=== PATIENT | female | born 1960 | race Caucasian/White ===

== ENCOUNTER → 2016-10-24 | Outpatient (CLI) | payer BC ==
--- NOTE | 2016-10-24 12:33 | REP ---
Chest two views HISTORY: Cough Comparison: 09/11/2013 An increase in interstitial markings is present in the lower lobes consistent with chronic interstitial fibrosis. The cardiac silhouette is enlarged. The pulmonary vasculature is normal in appearance. The bony structure is intact. IMPRESSION: 1. Chronic bibasilar interstitial fibrosis. 2. Cardiomegaly. Signed by Xander Cintron MD 10/24/2016 12:25 P
== END ==
LOC: M LRY 11:48
PROVIDERS: ATTEND Nurse Practitioner Family
DX: J84.10 Pulmonary fibrosis, unspecified (principal); I51.7 Cardiomegaly; R06.02 Shortness of breath; R05 Cough

== ENCOUNTER → 2016-10-27 | Outpatient (CLI) | payer BC ==
[2016-10-27 18:41] LABS: MEAN CORPUSCULAR HEMOGLOBIN 30.1 pg (27.0-33.0); MEAN CORPUSCULAR HGB CONC 35.1 g/dl (32.0-36.5); MEAN CORPUSCULAR VOLUME 85.9 fl (80.0-96.0); RED CELL DISTRIBUTION WIDTH 14.2 % (11.5-14.5); WHITE BLOOD COUNT 7.1 K/mm3 (4.0-10.0)
[2016-10-27 18:56] LABS: ALBUMIN 4.2 GM/DL (3.2-5.2); ALBUMIN/GLOBULIN RATIO 1.17 (1.00-1.93); ALKALINE PHOSPHATASE 129 U/L (45-117); ALT/SGPT 49 U/L (12-78); ANION GAP 6 MEQ/L (8-16); AST/SGOT 34 U/L (15-37); BILIRUBIN,TOTAL 0.4 MG/DL (0.2-1.0); BLOOD UREA NITROGEN 12 MG/DL (7-18); CALCIUM LEVEL 9.3 MG/DL (8.5-10.1); CARBON DIOXIDE LEVEL 32 MEQ/L (21-32); CHLORIDE LEVEL 100 MEQ/L (98-107); CHOLESTEROL LEVEL 128 MG/DL (<200); CREATININE FOR GFR 0.78 MG/DL (0.55-1.02); GLOMERULAR FILTRATION RATE > 60.0 (>51); GLUCOSE, FASTING 214 MG/DL (70-105); POTASSIUM SERUM 4.9 MEQ/L (3.5-5.1); SODIUM LEVEL 138 MEQ/L (136-145); TOTAL PROTEIN 7.8 GM/DL (6.4-8.2); TRIGLYCERIDES LEVEL 268 MG/DL (<150)
== END ==
LOC: M LRY 11:23
PROVIDERS: ATTEND Nurse Practitioner Family
DX: E78.00 Pure hypercholesterolemia, unspecified (principal); I10 Essential (primary) hypertension; E55.9 Vitamin D deficiency, unspecified

== ENCOUNTER → 2016-12-10 | Outpatient (CLI) | payer BC ==
[2016-12-10 12:15] LABS: FREE T4 1.02 NG/DL (0.76-1.46); THYROXINE (T4) 10.1 UG/DL (4.5-12.0)
== END ==
LOC: M LRY 08:24
PROVIDERS: ATTEND Nurse Practitioner Family
DX: R53.83 Other fatigue (principal); E53.8 Deficiency of other specified B group vitamins; R73.9 Hyperglycemia, unspecified

== ENCOUNTER → 2016-12-25 | Outpatient (CLI) | payer BC ==
[2016-12-25 11:29] LABS: MEAN CORPUSCULAR HEMOGLOBIN 29.7 pg (27.0-33.0); MEAN CORPUSCULAR HGB CONC 33.8 g/dl (32.0-36.5); MEAN CORPUSCULAR VOLUME 87.8 fl (80.0-96.0); RED CELL DISTRIBUTION WIDTH 14.3 % (11.5-14.5); WHITE BLOOD COUNT 7.1 K/mm3 (4.0-10.0)
[2016-12-25 12:27] LABS: ALBUMIN 3.9 GM/DL (3.2-5.2); ALKALINE PHOSPHATASE 126 U/L (45-117); ALT/SGPT 35 U/L (12-78); ANION GAP 6 MEQ/L (8-16); AST/SGOT 25 U/L (15-37); BILIRUBIN,TOTAL 0.5 MG/DL (0.2-1.0); BLOOD UREA NITROGEN 10 MG/DL (7-18); CALCIUM LEVEL 9.1 MG/DL (8.5-10.1); CARBON DIOXIDE LEVEL 28 MEQ/L (21-32); CHLORIDE LEVEL 104 MEQ/L (98-107); CHOLESTEROL LEVEL 109 MG/DL (<200); CREATININE FOR GFR 0.62 MG/DL (0.55-1.02); GLOMERULAR FILTRATION RATE > 60.0 (>51); GLUCOSE, FASTING 162 MG/DL (70-105); MAGNESIUM LEVEL 2.2 MG/DL (1.8-2.4); POTASSIUM SERUM 5.1 MEQ/L (3.5-5.1); SODIUM LEVEL 138 MEQ/L (136-145); TOTAL PROTEIN 6.9 GM/DL (6.4-8.2); TRIGLYCERIDES LEVEL 195 MG/DL (<150)
== END ==
LOC: M LRY 08:20
PROVIDERS: ATTEND Nurse Practitioner Family
DX: E16.2 Hypoglycemia, unspecified (principal)

== ENCOUNTER → 2017-01-14 | Outpatient (CLI) | payer BC ==
--- NOTE | 2017-01-14 16:34 | REP ---
LEFT WRIST, FOUR VIEWS: HISTORY: Pain. There is no acute fracture or dislocation. There is minimal narrowing of the radiocarpal and 1st carpal metacarpal joint space. IMPRESSION: Degenerative change as described above. Signed by Xander Cintron MD 01/14/2017 04:42 P
== END ==
LOC: M LRY 15:37
PROVIDERS: ATTEND Nurse Practitioner Family
DX: M25.832 Other specified joint disorders, left wrist (principal)

== ENCOUNTER → 2017-03-15 | Outpatient (CLI) | payer BC ==
--- NOTE | 2017-03-15 10:58 | REP ---
MAXILLOFACIAL CT WITHOUT CONTRAST: HISTORY: Chronic sinusitis. COMPARISON: 08/09/2011. The uncinate processes are not seen. A defect is present in the mid inferior nasal septum. This may be due to surgery or secondary to chronic inflammatory disease. Minimal mucosal thickening is present in the maxillary sinuses. The remaining sinuses are clear. The middle and inferior nasal turbinates are partially paradoxical. The nasal septum is midline. The cribriform plate, medial borrego of the orbits, and optic canals are intact. There is aeration of the anterior clinoid processes. The carotid canals form a segment of the posterolateral borrego of the sphenoid sinus. The right sphenoid sinus septum inserts into the right internal carotid canal wall. IMPRESSION: Sinus mucosal thickening as described above. Signed by Xander Cintron MD 03/15/2017 11:08 A
== END ==
LOC: M RAD 10:25
PROVIDERS: ATTEND Specialist
DX: J32.4 Chronic pansinusitis (principal)

== ENCOUNTER → 2017-05-10 | Outpatient (CLI) | payer BC ==
--- NOTE | 2017-05-13 07:15 | REP ---
Clinical: Evaluate patency for line placement. Technique: Real time miller scale and color Doppler evaluation using linear high frequency transducer. Findings: Directed ultrasound examination at the level of the thoracic inlet demonstrates normal, patent bilateral internal jugular veins with normal diameter, flow and wave patterns. Subclavian veins are patent and demonstrate normal venous wave patterns, but appears somewhat diminutive in caliber. Impression: Patent bilateral internal jugular veins and subclavian veins. Subclavian veins appear somewhat diminutive but symmetric. Signed by Ishaan Martines MD 05/10/2017 03:18 P
== END ==
LOC: M RAD 14:38
PROVIDERS: ATTEND Nurse Practitioner Family
DX: M79.89 Other specified soft tissue disorders (principal)

== ENCOUNTER → 2017-05-15 | Outpatient (CLI) | payer BC | LOC: M LRY 07:32 | PROVIDERS: ATTEND Physician Assistant Medical | DX: E55.9 Vitamin D deficiency, unspecified (principal) ==

== ENCOUNTER → 2017-05-15 | Outpatient (REF) | payer BC ==
[2017-05-15 13:26] LABS: MEAN CORPUSCULAR HEMOGLOBIN 28.8 pg (27.0-33.0); MEAN CORPUSCULAR VOLUME 84.8 fl (80.0-96.0); RED CELL DISTRIBUTION WIDTH 14.8 % (11.5-14.5)
[2017-05-15 13:57] LABS: ALBUMIN/GLOBULIN RATIO 1.21 (1.00-1.93); ALKALINE PHOSPHATASE 84 U/L (45-117); ALT/SGPT 40 U/L (12-78); ANION GAP 7 MEQ/L (8-16); AST/SGOT 16 U/L (15-37); BILIRUBIN,TOTAL 0.3 MG/DL (0.2-1.0); BLOOD UREA NITROGEN 13 MG/DL (7-18); CALCIUM LEVEL 9.5 MG/DL (8.5-10.1); CARBON DIOXIDE LEVEL 30 MEQ/L (21-32); CHLORIDE LEVEL 106 MEQ/L (98-107); CHOLESTEROL LEVEL 219 MG/DL (<200); CREATININE FOR GFR 0.66 MG/DL (0.55-1.02); GLOMERULAR FILTRATION RATE > 60.0 (>51); GLUCOSE, FASTING 83 MG/DL (70-105); POTASSIUM SERUM 4.3 MEQ/L (3.5-5.1); SODIUM LEVEL 143 MEQ/L (136-145); TOTAL PROTEIN 7.3 GM/DL (6.4-8.2); TRIGLYCERIDES LEVEL 296 MG/DL (<150)
== END ==
LOC: M LRY 12:15
PROVIDERS: ATTEND Nurse Practitioner Family
DX: E78.00 Pure hypercholesterolemia, unspecified (principal); I10 Essential (primary) hypertension; E11.9 Type 2 diabetes mellitus without complications; R73.9 Hyperglycemia, unspecified

== ENCOUNTER → 2017-07-24 | Outpatient (CLI) | payer BC ==
--- NOTE | 2017-07-24 14:29 | REP ---
Clinical: Lump. Comparison: 10/24/2016. Technique: PA and lateral. Findings: The mediastinum and cardiac silhouette are normal. The lung rubio are clear and without acute consolidation, effusion, or pneumothorax. The skeletal structures are intact and normal. Impression: 1. No acute cardiopulmonary process. Signed by Ishaan Martines MD 07/24/2017 02:20 P
--- NOTE | 2017-07-24 14:51 | REP ---
Clinical: Left neck palpable mass. Technique: Real time miller scale ultrasound examination using linear high frequency transducer. Findings: Directed ultrasound examination in the left supraclavicular region at the point of palpable mass demonstrates normal subcutaneous tissues and associated soft tissues. No fluid collection, adenopathy or mass appreciated. Impression: No abnormality in the left supraclavicular region. Signed by Ishaan Martines MD 07/24/2017 02:42 P
--- NOTE | 2017-07-25 07:39 | REPMRS ---
Patient History The patient states she has not had a clinical breast exam in over a year. Patient is postmenopausal, has history of cancer in the left breast at age 49, and has history of colorectal cancer at age 41. Family history of colorectal cancer in father at age 50 and breast cancer in maternal grandmother. Malignant excisional biopsy of the left breast, 2010. Radiation therapy of the left breast. Took hormonal contraceptives for 10 years. Took unspecified hormones for 2 years. Digital Mammo Screening Bilat: July 24, 2017 - Exam #: [id number] Bilateral CC and MLO view(s) were taken. Technologist: Leesa Herr, Technologist Prior study comparison: June 28, 2016, bilateral digital mammo screening bilat performed at [facility]. May 20, 2015, digital bilateral screening mammo, performed at [facility]. May 14, 2014, bilateral digital mammo screening bilat performed at [facility]. FINDINGS: There are scattered fibroglandular densities. There has been no change in the appearance of the mammogram from the prior studies. There is a mild amount of scattered fibroglandular density which is fairly symmetric. There is no interval development of dominant mass, architectural distortion, or clustered microcalcification suggestive of malignancy. ASSESSMENT: BI-RADS/ACR category 1 mammogram. Negative. Recommendation Routine screening mammogram in 1 year (for women over age 40). This mammogram was interpreted with the aid of an FDA-approved computer-aided dectection system. Electronically Signed By: Brandt Hui MD 07/25/17 0739
== END ==
LOC: M RAD 13:38
PROVIDERS: ATTEND Nurse Practitioner Adult Health
DX: R22.1 Localized swelling, mass and lump, neck (principal)

== ENCOUNTER → 2017-08-13 | Outpatient (CLI) | payer BC ==
[2017-08-13 11:57] LABS: BASO % 0.7 % (0.0-1.0); EOS # 0.2 10^3/uL (0.0-0.50); IMMATURE GRANULOCYTE % 0.2 % (0-0); MEAN CORPUSCULAR HEMOGLOBIN 28.5 pg (27.0-33.0); MEAN CORPUSCULAR HGB CONC 33.1 g/dl (32.0-36.5); MEAN CORPUSCULAR VOLUME 86.3 fl (80.0-96.0); MONO # 0.4 10^3/uL (0.0-0.8); MONO % 7.6 % (0.0-5.0); NEUTROPHILS # 2.8 10^3/uL (1.8-7.7); NEUTROPHILS % 52.5 % (36.0-66.0); PLATELET COUNT, AUTOMATED 192 10^3/uL (150-450); RED CELL DISTRIBUTION WIDTH 14.1 % (11.5-14.5); WHITE BLOOD COUNT 5.4 10^3/uL (4.0-10.0)
[2017-08-13 12:34] LABS: ALBUMIN 3.9 GM/DL (3.2-5.2); ALBUMIN/GLOBULIN RATIO 1.18 (1.00-1.93); ALKALINE PHOSPHATASE 77 U/L (45-117); ALT/SGPT 42 U/L (12-78); ANION GAP 8 MEQ/L (8-16); AST/SGOT 23 U/L (7-37); BILIRUBIN,TOTAL 0.5 MG/DL (0.2-1.0); BLOOD UREA NITROGEN 11 MG/DL (7-18); CALCIUM LEVEL 8.7 MG/DL (8.5-10.1); CARBON DIOXIDE LEVEL 27 MEQ/L (21-32); CHLORIDE LEVEL 109 MEQ/L (98-107); CHOLESTEROL LEVEL 160 MG/DL (<200); CREATININE FOR GFR 0.53 MG/DL (0.55-1.02); FREE T4 0.95 NG/DL (0.76-1.46); GLOMERULAR FILTRATION RATE > 60.0 (>51); GLUCOSE, FASTING 101 MG/DL (70-105); POTASSIUM SERUM 4.4 MEQ/L (3.5-5.1); SODIUM LEVEL 144 MEQ/L (136-145); TOTAL PROTEIN 7.2 GM/DL (6.4-8.2); TRIGLYCERIDES LEVEL 174 MG/DL (<150)
== END ==
LOC: M LRY 09:45
PROVIDERS: ATTEND Internal Medicine Cardiovascular Disease
DX: E11.9 Type 2 diabetes mellitus without complications (principal); G47.33 Obstructive sleep apnea (adult) (pediatric); M32.9 Systemic lupus erythematosus, unspecified

== ENCOUNTER → 2017-08-13 | Outpatient (REF) | payer BC | LOC: M LRY 09:48 | PROVIDERS: ATTEND Physician Assistant Medical | DX: E55.9 Vitamin D deficiency, unspecified (principal) ==

== ENCOUNTER → 2017-08-14 | Outpatient (REF) | payer BC | LOC: M SMT 17:46 | PROVIDERS: ATTEND Nurse Practitioner Women's Health | DX: R32 Unspecified urinary incontinence (principal) ==

== ENCOUNTER → 2017-09-19 | Outpatient (REF) | payer BC ==
[2017-09-19 20:32] LABS: APPEARANCE, URINE CLEAR (CLEAR); BACTERIA, URINE AUTO 1+ (NEGATIVE); BILIRUBIN, URINE AUTO NEGATIVE (NEGATIVE); BLOOD, URINE BLOOD NEGATIVE (NEGATIVE); COLOR, URINE YELLOW (YELLOW); GLUCOSE, URINE (UA) AUTO NEGATIVE (NEGATIVE); KETONE, URINE AUTO NEGATIVE (NEGATIVE); LEUKOCYTE ESTERASE, URINE AUTO 2+ (NEGATIVE); MUCUS, URINE SMALL (NEGATIVE); NITRITE, URINE AUTO NEGATIVE (NEGATIVE); PROTEIN, URINE AUTO NEGATIVE (NEGATIVE); RBC, URINE AUTO 2 /HPF (0-3); SPECIFIC GRAVITY URINE AUTO 1.014 (1.002-1.035); SQUAMOUS EPITHELIAL CELL UR AU 2 /HPF (0-6); UROBILINOGEN, URINE AUTO 0.2 mg/dL (0.0-2.0); WBC, URINE AUTO 12 /HPF (0-3)
== END ==
LOC: M SMT 17:30
DX: N39.0 Urinary tract infection, site not specified (principal)
CPT/HCPCS: 81001

== ENCOUNTER → 2017-10-06 | Outpatient (CLI) | payer BC | LOC: M LRY 13:38 | DX: R53.81 Other malaise (principal); R91.8 Other nonspecific abnormal finding of lung field ==

== ENCOUNTER → 2017-10-06 | Outpatient (REF) | payer BC ==
[2017-10-06 20:43] LABS: INFLUENZA A AMPLIFICATION POSITIVE (NEGATIVE); INFLUENZA B AMPLIFICATION NEGATIVE (NEGATIVE)
== END ==
LOC: M SFHCLERA 14:30
DX: R53.81 Other malaise (principal)
CPT/HCPCS: 87502

== ENCOUNTER → 2017-11-12 | Outpatient (CLI) | payer BC ==
[2017-11-12 11:32] LABS: BASO % 0.9 % (0.0-1.0); EOS # 0.1 10^3/uL (0.0-0.50); EOS % 2.8 % (0.0-3.0); HEMATOCRIT 41.3 % (36.0-47.0); HEMOGLOBIN 13.4 g/dl (12.0-16.0); IMMATURE GRANULOCYTE % 0.4 % (0-3.0); LYMPH # 0.6 10^3/uL (1.5-4.5); LYMPH % 13.9 % (24.0-44.0); MEAN CORPUSCULAR HEMOGLOBIN 28.2 pg (27.0-33.0); MEAN CORPUSCULAR HGB CONC 32.4 g/dl (32.0-36.5); MEAN CORPUSCULAR VOLUME 86.9 fl (80.0-96.0); MONO # 0.3 10^3/uL (0.0-0.8); MONO % 6.3 % (0.0-5.0); NEUTROPHILS # 3.5 10^3/uL (1.8-7.7); NEUTROPHILS % 75.7 % (36.0-66.0); PLATELET COUNT, AUTOMATED 164 10^3/uL (150-450); RED BLOOD COUNT 4.75 10^6/uL (4.00-5.40); RED CELL DISTRIBUTION WIDTH 14.4 % (11.5-14.5); WHITE BLOOD COUNT 4.6 10^3/uL (4.0-10.0)
[2017-11-12 11:50] LABS: ALBUMIN 3.6 GM/DL (3.2-5.2); ALBUMIN/GLOBULIN RATIO 1.09 (1.00-1.93); ALKALINE PHOSPHATASE 85 U/L (45-117); ALT/SGPT 31 U/L (12-78); ANION GAP 5 MEQ/L (8-16); AST/SGOT 21 U/L (7-37); BILIRUBIN,TOTAL 0.4 MG/DL (0.2-1.0); BLOOD UREA NITROGEN 9 MG/DL (7-18); CALCIUM LEVEL 8.6 MG/DL (8.5-10.1); CARBON DIOXIDE LEVEL 28 MEQ/L (21-32); CHLORIDE LEVEL 109 MEQ/L (98-107); CHOLESTEROL LEVEL 215 MG/DL (<200); CHOLESTEROL RISK RATIO 6.515 (<5); CREATININE FOR GFR 0.54 MG/DL (0.55-1.30); FREE T4 0.84 NG/DL (0.76-1.46); GLOMERULAR FILTRATION RATE > 60.0 (>51); GLUCOSE, FASTING 109 MG/DL (70-100); HDL CHOLESTEROL 33 MG/DL (>40); LDL CHOLESTEROL 141.2 MG/DL (<100); NON-HDL-C 182 MG/DL; SODIUM LEVEL 142 MEQ/L (136-145); THYROID STIMULATING HORMONE 0.848 uIU/ML (0.358-3.740); TOTAL PROTEIN 6.9 GM/DL (6.4-8.2); TRIGLYCERIDES LEVEL 204 MG/DL (<150)
[2017-11-12 12:01] LABS: TOTAL 25(OH) VITAMIN D 15.7 NG/ML (30.0-100.0)
[2017-11-12 12:43] LABS: ESTIMATED AVERAGE GLUCOSE 120 MG/DL (60-110); HEMOGLOBIN A1c 5.8 %
== END ==
LOC: M LRY 08:35
DX: Z51.81 Encounter for therapeutic drug level monitoring (principal); Z79.899 Other long term (current) drug therapy; E83.32 Hereditary vitamin D-dependent rickets (type 1) (type 2); R73.9 Hyperglycemia, unspecified; E78.00 Pure hypercholesterolemia, unspecified; E78.1 Pure hyperglyceridemia
CPT/HCPCS: 84443

== ENCOUNTER → 2018-03-13 | Outpatient (REF) | payer BC ==
[2018-03-13 13:01] LABS: BASO # 0.1 10^3/uL (0.0-0.2); BASO % 0.9 % (0.0-1.0); EOS # 0.2 10^3/uL (0.0-0.50); EOS % 3.4 % (0.0-3.0); HEMATOCRIT 43.8 % (36.0-47.0); HEMOGLOBIN 14.3 g/dl (12.0-15.5); IMMATURE GRANULOCYTE % 0.3 % (0-3.0); LYMPH # 2.2 10^3/uL (1.5-4.5); LYMPH % 33.7 % (24.0-44.0); MEAN CORPUSCULAR HEMOGLOBIN 28.8 pg (27.0-33.0); MEAN CORPUSCULAR HGB CONC 32.6 g/dl (32.0-36.5); MEAN CORPUSCULAR VOLUME 88.3 fl (80.0-96.0); MONO # 0.4 10^3/uL (0.0-0.8); MONO % 6.4 % (0.0-5.0); NEUTROPHILS # 3.6 10^3/uL (1.8-7.7); NEUTROPHILS % 55.3 % (36.0-66.0); PLATELET COUNT, AUTOMATED 191 10^3/uL (150-450); RED BLOOD COUNT 4.96 10^6/uL (4.00-5.40); RED CELL DISTRIBUTION WIDTH 14.5 % (11.5-14.5); WHITE BLOOD COUNT 6.5 10^3/uL (4.0-10.0)
[2018-03-13 13:36] LABS: CREATININE, URINE 34.1 MG/DL; MALB URINE SIEMENS < 5.0 MG/L; MAU/CREAT RATIO 14.6 MCG/MG (0.0-30.0)
[2018-03-13 13:39] LABS: TOTAL 25(OH) VITAMIN D 42.4 NG/ML (30.0-100.0)
[2018-03-13 13:59] LABS: ALBUMIN 3.9 GM/DL (3.2-5.2); ALBUMIN/GLOBULIN RATIO 1.18 (1.00-1.93); ALKALINE PHOSPHATASE 97 U/L (45-117); ALT/SGPT 33 U/L (12-78); ANION GAP 6 MEQ/L (8-16); AST/SGOT 17 U/L (7-37); BILIRUBIN,TOTAL 0.4 MG/DL (0.2-1.0); BLOOD UREA NITROGEN 10 MG/DL (7-18); CALCIUM LEVEL 9.2 MG/DL (8.5-10.1); CARBON DIOXIDE LEVEL 29 MEQ/L (21-32); CHLORIDE LEVEL 106 MEQ/L (98-107); CHOLESTEROL LEVEL 171 MG/DL (<200); CHOLESTEROL RISK RATIO 4.885 (<5); CREATININE FOR GFR 0.58 MG/DL (0.55-1.30); FREE T4 0.81 NG/DL (0.76-1.46); GLOMERULAR FILTRATION RATE > 60.0 (>51); GLUCOSE, FASTING 97 MG/DL (70-100); HDL CHOLESTEROL 35 MG/DL (>40); LDL CHOLESTEROL 91.6 MG/DL (<100); NON-HDL-C 136 MG/DL; POTASSIUM SERUM 4.7 MEQ/L (3.5-5.1); SODIUM LEVEL 141 MEQ/L (136-145); TOTAL PROTEIN 7.2 GM/DL (6.4-8.2); TRIGLYCERIDES LEVEL 222 MG/DL (<150)
[2018-03-13 14:17] LABS: ESTIMATED AVERAGE GLUCOSE 134 MG/DL (60-110); HEMOGLOBIN A1c 6.3 %
== END ==
LOC: M LABDRWAD 12:35
DX: E78.00 Pure hypercholesterolemia, unspecified (principal); E83.32 Hereditary vitamin D-dependent rickets (type 1) (type 2)

== ENCOUNTER → 2018-07-04 | Outpatient (CLI) | payer BC | LOC: M RAD 13:02 | DX: R92.2 Inconclusive mammogram (principal) | CPT/HCPCS: 76642 ==

== ENCOUNTER → 2018-07-09 | Outpatient (CLI) | payer BC | LOC: M RAD 12:22 | DX: N60.11 Diffuse cystic mastopathy of right breast (principal) | CPT/HCPCS: 77065 ==

== ENCOUNTER 2018-08-12 09:26 | Day surgery (SDC) | payer BC ==
[~2018-08-12] VITALS: Ht 162.6 cm; Wt 79.4 kg
[~2018-08-12 09:26] MED LIST: ASPI81TA85 PO; CALC600T68 PO; CLAR10CA3 PO; CRES10TA32 PO; DEXI60CA2 PO; FLON1SPR NARES; JANU100T PO; LEXA1TAB2 PO; METH1TAB40 PO; METO1TAB32 PO; ROPI1TAB PO; ROPI2TAB PO; VENTAER INH
[2018-08-12] MEDS ORDERED: NS 1,000 ML IV ONE (09:45)
[2018-08-12] MEDS ORDERED: LIDOCAINE 2% INJ 100 MG/5 ML SDV (FOR ANES.) As Ordered ONE (10:54)
[2018-08-12] MEDS ORDERED: PROPOFOL 500 MG/50 ML VIAL As Ordered ONE (10:54)
[2018-08-12] MEDS ORDERED: fentaNYL 100 MCG/2 ML INJECTION (J3010) As Ordered ONE (10:54)
[2018-08-12] MEDS ORDERED: ePHEDrine SULFATE 25 MG/5 ML(5MG/ML) SYRINGE As Ordered ONE (11:06)
[2018-08-12 11:45] VITALS: BP 142/76
--- NOTE | 2018-08-12 12:17 | ROOR ---
Patient Name: Caron Franco Procedure Date: 08/12/2018 10:42 AM Date of : 1960 Age: 57 Room: [facility] Gender: Female Note Status: Finalized Procedure: Upper GI endoscopy Indications: Dyspepsia, Dysphagia Providers: Kilo Reyes MD Referring MD: LINDEN MORTON NP Requesting Provider: Medicines: Monitored Anesthesia Care Complications: No immediate complications. Procedure: Pre-Anesthesia Assessment: - Prior to the procedure, a History and Physical was performed, and patient medications and allergies were reviewed. The patient is competent. The risks and benefits of the procedure and the sedation options and risks were discussed with the patient. All questions were answered and informed consent was obtained. Patient identification and proposed procedure were verified by the physician, the nurse and the anesthesiologist in the procedure room. Mental Status Examination: alert and oriented. Airway Examination: normal oropharyngeal airway and neck mobility. Respiratory Examination: clear to auscultation. CV Examination: normal. Prophylactic Antibiotics: The patient does not require prophylactic antibiotics. Prior Anticoagulants: The patient has taken no previous anticoagulant or antiplatelet agents. ASA Grade Assessment: II - A patient with mild systemic disease. After reviewing the risks and benefits, the patient was deemed in satisfactory condition to undergo the procedure. The anesthesia plan was to use monitored anesthesia care (MAC). Immediately prior to administration of medications, the patient was re-assessed for adequacy to receive sedatives. The heart rate, respiratory rate, oxygen saturations, blood pressure, adequacy of pulmonary ventilation, and response to care were monitored throughout the procedure. The physical status of the patient was re-assessed after the procedure. The Endoscope was introduced through the mouth, and advanced to the second part of duodenum. The upper GI endoscopy was accomplished without difficulty. The patient tolerated the procedure well. Findings: The Z-line was regular and was found 39 cm from the incisors. No endoscopic abnormality was evident in the esophagus to explain the patient's complaint of dysphagia. Biopsies were obtained from the proximal and distal esophagus with cold forceps for histology of suspected eosinophilic esophagitis. Verification of patient identification for the specimen was done by the physician and nurse using the patient's name, date and medical record number. Estimated blood loss was minimal. Diffuse severe inflammation characterized by erythema, friability, granularity and linear erosions was found in the gastric body and in the gastric antrum. Biopsies were taken with a cold forceps for histology. Biopsies were taken with a cold forceps for Helicobacter pylori testing. Verification of patient identification for the specimen was done by the physician and nurse using the patient's name, date and medical record number. Estimated blood loss was minimal. The duodenal bulb and second portion of the duodenum were normal. Biopsies for histology were taken with a cold forceps for evaluation of celiac disease. Impression: - Z-line regular, 39 cm from the incisors. - No endoscopic esophageal abnormality to explain patient's dysphagia. Biopsied. - Gastritis. Biopsied. - Normal duodenal bulb and second portion of the duodenum. Biopsied. Recommendation: - Patient has a contact number available for emergencies. The signs and symptoms of potential delayed complications were discussed with the patient. Return to normal activities tomorrow. Written discharge instructions were provided to the patient. - Resume previous diet. - Continue present medications. 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 - Follow an antireflux regimen. - Await pathology results. - Based on the biopsy results you will receive a phone call from GI clinic in 2-3 weeks to review the pathology results AND/OR your results will be faxed to your Primary care physician. - Return to primary care physician. Kilo Reyes MD Kilo Reyes MD 08/12/2018 12:17:28 PM This report has been signed electronically. Number of Addenda: 0 Note Initiated On: 08/12/2018 10:42 AM Estimated Blood Loss: Estimated blood loss was minimal.
--- NOTE | 2018-08-12 12:20 | ROOR ---
Patient Name: Caron Franco Procedure Date: 08/12/2018 10:43 AM Date of : 1960 Age: 57 Room: [facility] Gender: Female Note Status: Finalized Procedure: Colonoscopy Indications: Screening for colorectal malignant neoplasm Providers: Kilo Reyes MD Referring MD: LINDEN MORTON NP Requesting Provider: Medicines: Monitored Anesthesia Care Complications: No immediate complications. Procedure: Pre-Anesthesia Assessment: - Prior to the procedure, a History and Physical was performed, and patient medications and allergies were reviewed. The patient is competent. The risks and benefits of the procedure and the sedation options and risks were discussed with the patient. All questions were answered and informed consent was obtained. Patient identification and proposed procedure were verified by the physician, the nurse and the anesthesiologist in the procedure room. Mental Status Examination: alert and oriented. Airway Examination: normal oropharyngeal airway and neck mobility. Respiratory Examination: clear to auscultation. CV Examination: normal. Prophylactic Antibiotics: The patient does not require prophylactic antibiotics. Prior Anticoagulants: The patient has taken no previous anticoagulant or antiplatelet agents. ASA Grade Assessment: II - A patient with mild systemic disease. After reviewing the risks and benefits, the patient was deemed in satisfactory condition to undergo the procedure. The anesthesia plan was to use monitored anesthesia care (MAC). Immediately prior to administration of medications, the patient was re-assessed for adequacy to receive sedatives. The heart rate, respiratory rate, oxygen saturations, blood pressure, adequacy of pulmonary ventilation, and response to care were monitored throughout the procedure. The physical status of the patient was re-assessed after the procedure. The Colonoscope was introduced through the anus and advanced to the terminal ileum, with identification of the appendiceal orifice and IC valve. The colonoscopy was performed without difficulty. The patient tolerated the procedure well. The quality of the bowel preparation was good. The terminal ileum, ileocecal valve, appendiceal orifice, and rectum were photographed. Scope insertion time was 4 minutes. Scope withdrawal time was 10 minutes. The total duration of the procedure was 14 minutes. Findings: The perianal and digital rectal examinations were normal. The terminal ileum appeared normal. A 12 mm polyp was found in the ascending colon. The polyp was sessile. The polyp was removed with a cold biopsy forceps. Resection and retrieval were complete. Verification of patient identification for the specimen was done by the physician and nurse using the patient's name, date and medical record number. Estimated blood loss was minimal. A 10 mm polyp was found in the transverse colon. The polyp was sessile. The polyp was removed with a cold snare. Resection and retrieval were complete. Non-bleeding external and internal hemorrhoids were found during retroflexion. The hemorrhoids were medium-sized. Impression: - The examined portion of the ileum was normal. - One 12 mm polyp in the ascending colon, removed with a cold biopsy forceps. Resected and retrieved. - One 10 mm polyp in the transverse colon, removed with a cold snare. Resected and retrieved. - Non-bleeding external and internal hemorrhoids. Recommendation: - Patient has a contact number available for emergencies. The signs and symptoms of potential delayed complications were discussed with the patient. Return to normal activities tomorrow. Written discharge instructions were provided to the patient. - Resume previous diet. - Continue present medications. - Await pathology results. - Repeat colonoscopy in 3 - 5 years for surveillance based on pathology results. - Based on the biopsy results you will receive a phone call from GI clinic in 2-3 weeks to review the pathology results AND/OR your results will be faxed to your Primary care physician. - Return to primary care physician. Kilo Reyes MD Kilo Reyes MD 08/12/2018 12:20:38 PM This report has been signed electronically. Number of Addenda: 0 Note Initiated On: 08/12/2018 10:43 AM Estimated Blood Loss: Estimated blood loss was minimal.
== END 2018-08-12 12:23 | disposition home or self-care (01) ==
LOC: M OPP 09:26
PROVIDERS: ATTEND Internal Medicine Gastroenterology
DX: Z12.11 Encounter for screening for malignant neoplasm of colon (principal); K64.8 Other hemorrhoids; D12.2 Benign neoplasm of ascending colon; D12.3 Benign neoplasm of transverse colon; Z80.0 Family history of malignant neoplasm of digestive organs; R13.10 Dysphagia, unspecified; K29.70 Gastritis, unspecified, without bleeding; R10.13 Epigastric pain; I10 Essential (primary) hypertension; E11.9 Type 2 diabetes mellitus without complications; J45.909 Unspecified asthma, uncomplicated; G47.30 Sleep apnea, unspecified; Z79.82 Long term (current) use of aspirin; Z79.899 Other long term (current) drug therapy; Z85.3 Personal history of malignant neoplasm of breast; Z90.710 Acquired absence of both cervix and uterus
CPT/HCPCS: 43239; 45380; 45385; 88305; J3010

== ENCOUNTER → 2018-10-17 | Outpatient (REF) | payer BC | LOC: M SFHCLERA 16:12 | PROVIDERS: ATTEND Physician Assistant | DX: R52 Pain, unspecified (principal) ==

== ENCOUNTER → 2018-10-17 | Outpatient (CLI) | payer BC ==
--- NOTE | 2018-10-17 17:32 | REP ---
CHEST PA AND LATERAL: 10/17/2018. Comparison: 10/06/2017, 10/24/2016. Clinical history: Sore throat, myalgias, headache, wheezing and fatigue for 2 weeks. History of smoking. Findings: The lung rubio are well inflated. CP angles are sharply defined. There is no lateral pleural thickening apical scarring or pneumothorax. There is no dense consolidation, pulmonary nodules or parenchymal mass. Heart size borderline. Minor prominence of pulmonary arteries noted suggesting some pulmonary artery hypertension. No vascular redistribution or pulmonary edema. Degenerative changes are noted in the spine with marginal osteophytes anteriorly at multiple levels, greatest at T9-10 level finding in a previous radiograph is again seen at that level but on the PA view corresponds to fairly large dense osteophytes. No acute compression deformity or other focal bone finding. Impression: 1. Pulmonary artery hypertension with some mild hyperinflation. 2. Borderline heart size but no specific chamber enlargement, vascular redistribution or edema. 3. No acute infiltrate, effusion, parenchymal mass, widening of the mediastinum or other significant acute finding. Electronically Signed by Jacob Maria MD 10/17/2018 07:57 P
== END ==
LOC: M LRY 16:00
PROVIDERS: ATTEND Physician Assistant
DX: R52 Pain, unspecified (principal)

== ENCOUNTER → 2018-11-02 | Outpatient (REF) | payer BC | LOC: M SFHCLERA 12:21 | PROVIDERS: ATTEND Physician Assistant | DX: R53.81 Other malaise (principal) ==

== ENCOUNTER → 2018-11-02 | Outpatient (CLI) | payer BC ==
--- NOTE | 2018-11-02 13:06 | REP ---
PA and lateral chest: Comparison is 10/17/2018. There is a small subsegmental infiltrate in the left costophrenic angle as an interval change. Lung rubio otherwise clear. Cardiac size normal. The willy, mediastinum, skeletal structures are unremarkable. Impression: Acute subsegmental infiltrate in the left costophrenic angle as an interval change. Electronically Signed by Gerber Cross MD 11/02/2018 12:57 P
== END ==
LOC: M LRY 12:36
PROVIDERS: ATTEND Physician Assistant
DX: R91.8 Other nonspecific abnormal finding of lung field (principal); J10.1 Influenza due to other identified influenza virus with other respiratory manifestations; R05 Cough

== ENCOUNTER → 2018-12-09 | Outpatient (CLI) | payer BC ==
[~2018-12-09] MED LIST changes: +CALC1TAB8 PO; -CALC600T68 PO; +CRES10TA PO; -CRES10TA32 PO
[2018-12-09 11:39] LABS: HEMATOCRIT 41.6 % (36.0-47.0); HEMOGLOBIN 13.3 g/dl (12.0-15.5); MEAN CORPUSCULAR HEMOGLOBIN 27.9 pg (27.0-33.0); MEAN CORPUSCULAR VOLUME 87.2 fl (80.0-96.0); PLATELET COUNT, AUTOMATED 189 10^3/uL (150-450); RED BLOOD COUNT 4.77 10^6/uL (4.00-5.40)
[2018-12-09 12:02] LABS: ALBUMIN 3.7 GM/DL (3.2-5.2); ALT/SGPT 43 U/L (12-78); BILIRUBIN,TOTAL 0.6 MG/DL (0.2-1.0); BLOOD UREA NITROGEN 12 MG/DL (7-18); CARBON DIOXIDE LEVEL 29 MEQ/L (21-32); CHLORIDE LEVEL 107 MEQ/L (98-107); CHOLESTEROL LEVEL 229 MG/DL (<200); CHOLESTEROL RISK RATIO 6.189 (<5); CPK CREATINE PHOSPHOKINASE 69 U/L (26-192); CREATININE FOR GFR 0.65 MG/DL (0.55-1.30); GLOMERULAR FILTRATION RATE > 60.0 (>51); GLUCOSE, FASTING 140 MG/DL (70-100); HDL CHOLESTEROL 37 MG/DL (>40); LDL CHOLESTEROL 149 MG/DL (<100); NON-HDL-C 192 MG/DL; POTASSIUM SERUM 5.1 MEQ/L (3.5-5.1); SODIUM LEVEL 140 MEQ/L (136-145); TOTAL PROTEIN 7.1 GM/DL (6.4-8.2); TRIGLYCERIDES LEVEL 214 MG/DL (<150)
[2018-12-09 12:26] LABS: MALB URINE SIEMENS 9.7 MG/L; MAU/CREAT RATIO 6.6 MCG/MG (0.0-30.0)
[2018-12-09 13:37] LABS: HEMOGLOBIN A1c 6.3 %
== END ==
LOC: M LRY 07:36
PROVIDERS: ATTEND Internal Medicine Cardiovascular Disease
DX: E11.9 Type 2 diabetes mellitus without complications (principal); I10 Essential (primary) hypertension; E78.5 Hyperlipidemia, unspecified

== ENCOUNTER → 2019-01-23 | Outpatient (CLI) | payer BC ==
[2019-01-23 11:48] LABS: THYROID STIMULATING HORMONE 1.39 uIU/ML (0.358-3.740); THYROXINE (T4) 10.3 UG/DL (4.5-12.0)
== END ==
LOC: M LRY 08:14
PROVIDERS: ATTEND Nurse Practitioner Family
DX: E03.9 Hypothyroidism, unspecified (principal)

== ENCOUNTER → 2019-03-05 | Outpatient (CLI) | payer BC ==
--- NOTE | 2019-03-05 19:12 | REP ---
LEFT FOOT COMPLETE, 03/05/2019. Clinical history: Left foot pain. The patient states pain plantar aspect. Findings: Four views were provided. There is some degenerative changes at the first MTP joint with slight narrowing and mild degenerative changes at IP joints of the toes. The other MTP joints intact. Phalanges and metatarsals without fracture. Tarsal bones without focal lesion. Talonavicular, calcaneocuboid joints are normal. I do not see any significant plantar or Achilles insertional spurs. No mass, focal soft tissue lesion evident by plain film. Subtalar joints intact. Impression: 1. Minor degenerative changes with no heel spurs, fracture, avulsion, erosion or soft tissue mass. 2. 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 Electronically Signed by Jacob Maria MD 03/05/2019 07:55 P
== END ==
LOC: M LRY 17:23
PROVIDERS: ATTEND Nurse Practitioner Family
DX: M19.072 Primary osteoarthritis, left ankle and foot (principal); Q74.2 Other congenital malformations of lower limb(s), including pelvic girdle

== ENCOUNTER → 2019-03-19 | Outpatient (CLI) | payer BC ==
[2019-03-19 12:04] LABS: HEMATOCRIT 43.1 % (36.0-47.0); HEMOGLOBIN 13.9 g/dl (12.0-15.5); MEAN CORPUSCULAR HEMOGLOBIN 28.7 pg (27.0-33.0); MEAN CORPUSCULAR HGB CONC 32.3 g/dl (32.0-36.5); MEAN CORPUSCULAR VOLUME 88.9 fl (80.0-96.0); PLATELET COUNT, AUTOMATED 183 10^3/uL (150-450); RED BLOOD COUNT 4.85 10^6/uL (4.00-5.40); WHITE BLOOD COUNT 7.6 10^3/uL (4.0-10.0)
[2019-03-19 12:21] LABS: HEMOGLOBIN A1c 6.6 %
[2019-03-19 12:33] LABS: ALT/SGPT 33 U/L (12-78); BILIRUBIN,TOTAL 0.5 MG/DL (0.2-1.0); BLOOD UREA NITROGEN 12 MG/DL (7-18); CALCIUM LEVEL 9.5 MG/DL (8.5-10.1); CARBON DIOXIDE LEVEL 27 MEQ/L (21-32); CHLORIDE LEVEL 108 MEQ/L (98-107); CHOLESTEROL LEVEL 149 MG/DL (<200); CHOLESTEROL RISK RATIO 4.257 (<5); CPK CREATINE PHOSPHOKINASE 55 U/L (26-192); FREE T4 0.85 NG/DL (0.76-1.46); GLOMERULAR FILTRATION RATE > 60.0 (>51); GLUCOSE, FASTING 116 MG/DL (70-100); HDL CHOLESTEROL 35 MG/DL (>40); LDL CHOLESTEROL 74 MG/DL (<100); NON-HDL-C 114 MG/DL; POTASSIUM SERUM 4.6 MEQ/L (3.5-5.1); SODIUM LEVEL 140 MEQ/L (136-145); TOTAL PROTEIN 7.5 GM/DL (6.4-8.2); TRIGLYCERIDES LEVEL 199 MG/DL (<150)
[2019-03-19 12:39] LABS: MALB URINE SIEMENS 11.6 MG/L; MAU/CREAT RATIO 10.5 MCG/MG (0.0-30.0)
== END ==
LOC: M LRY 08:51
PROVIDERS: ATTEND Internal Medicine Cardiovascular Disease
DX: E78.5 Hyperlipidemia, unspecified (principal); I10 Essential (primary) hypertension; E11.9 Type 2 diabetes mellitus without complications; E03.9 Hypothyroidism, unspecified

== ENCOUNTER → 2019-04-12 | Outpatient (REF) | payer BC | LOC: M LAB REF 12:45 | PROVIDERS: ATTEND Nurse Practitioner Family | DX: R19.7 Diarrhea, unspecified (principal) ==

== ENCOUNTER → 2019-06-14 | Outpatient (REF) | payer BC ==
[2019-06-19 00:11] LABS: CALPROTECTIN STOOL 67 ug/g (0-120); FATS NEUTRAL Normal (.); FATS TOTAL Normal (.); PANCREATIC ELASTASE STOOL 421 (>200)
== END ==
LOC: M LAB REF 11:23
PROVIDERS: ATTEND Internal Medicine Gastroenterology
DX: R19.7 Diarrhea, unspecified (principal)

== ENCOUNTER → 2019-06-15 | Outpatient (CLI) | payer BC ==
[~2019-06-15] MED LIST changes: +ACET-839 PO; +AIRB1CHW PO; +METO50TA7 PO; +OMEP20CA4 PO; +TRIA25CR TOP
[2019-06-15 10:40] LABS: ALBUMIN 3.9 GM/DL (3.2-5.2); ALT/SGPT 24 U/L (12-78); BILIRUBIN,DIRECT 0.1 MG/DL (0.0-0.2); BILIRUBIN,TOTAL 0.5 MG/DL (0.2-1.0); C REACTIVE PROTEIN QUANTITATIV < 0.30 MG/DL (0.00-0.30); TOTAL PROTEIN 7.2 GM/DL (6.4-8.2)
[2019-06-15 11:13] LABS: H PYLORI QUALITATIVE IgG NEGATIVE (NEGATIVE)
[2019-06-17 08:06] LABS: IGASUB2 141.1 mg/dL (73.2-301.2); IgA SERUM (part of Subclasses) 118 mg/dL (87-352); TISSUE TRANSGLUTAMINASE IgA <2 U/mL (0-3)
== END ==
LOC: M LAB 09:08
PROVIDERS: ATTEND Internal Medicine Gastroenterology
DX: R19.7 Diarrhea, unspecified (principal)

== ENCOUNTER → 2019-09-09 | Outpatient (CLI) | payer BC ==
[~2019-09-09] MED LIST changes: +OMEP1CAP73 PO; -OMEP20CA4 PO
[2019-09-09 12:21] LABS: HEMOGLOBIN 13.6 g/dl (12.0-15.5); MEAN CORPUSCULAR HEMOGLOBIN 28.5 pg (27.0-33.0); MEAN CORPUSCULAR HGB CONC 32.4 g/dl (32.0-36.5); MEAN CORPUSCULAR VOLUME 87.9 fl (80.0-96.0); PLATELET COUNT, AUTOMATED 180 10^3/uL (150-450); RED BLOOD COUNT 4.78 10^6/uL (4.00-5.40); WHITE BLOOD COUNT 6.8 10^3/uL (4.0-10.0)
[2019-09-09 12:38] LABS: ALBUMIN 3.9 GM/DL (3.2-5.2); ALT/SGPT 33 U/L (12-78); BILIRUBIN,TOTAL 0.7 MG/DL (0.2-1.0); BLOOD UREA NITROGEN 15 MG/DL (7-18); CALCIUM LEVEL 9.3 MG/DL (8.5-10.1); CARBON DIOXIDE LEVEL 27 MEQ/L (21-32); CHLORIDE LEVEL 106 MEQ/L (98-107); CPK CREATINE PHOSPHOKINASE 46 U/L (26-192); CREATININE FOR GFR 0.55 MG/DL (0.55-1.30); GLOMERULAR FILTRATION RATE > 60.0 (>51); GLUCOSE, FASTING 152 MG/DL (70-100); POTASSIUM SERUM 4.6 MEQ/L (3.5-5.1); SODIUM LEVEL 140 MEQ/L (136-145)
[2019-09-09 14:55] LABS: HEMOGLOBIN A1c 7.1 %
== END ==
LOC: M LRY 07:39
PROVIDERS: ATTEND Nurse Practitioner Family
DX: I10 Essential (primary) hypertension (principal); E78.5 Hyperlipidemia, unspecified; E11.9 Type 2 diabetes mellitus without complications

== ENCOUNTER 2019-09-28 09:48 | Day surgery (SDC) | payer BC ==
[~2019-09-28] VITALS: Ht 162.6 cm; Wt 83.5 kg
[~2019-09-28 09:48] MED LIST changes: +LIDOCAINE 2% INJ 100 MG/5 ML SDV (FOR ANES.) As Ordered ONE; +NS 1,000 ML IV ONE; +propofoL 500 MG/50 ML VIAL As Ordered ONE
--- NOTE | 2019-09-28 11:44 | ROOR ---
Patient Name: Caron Franco Procedure Date: 09/28/2019 11:03 AM Date of : 1960 Age: 59 Room: [facility] Gender: Female Note Status: Finalized Procedure: Upper GI endoscopy Indications: Epigastric abdominal pain, Nausea with vomiting Providers: Kilo Reyes MD Referring MD: LINDEN MORTON NP Requesting Provider: Medicines: Monitored Anesthesia Care Complications: No immediate complications. Procedure: Pre-Anesthesia Assessment: - Prior to the procedure, a History and Physical was performed, and patient medications and allergies were reviewed. The patient is competent. The risks and benefits of the procedure and the sedation options and risks were discussed with the patient. All questions were answered and informed consent was obtained. Patient identification and proposed procedure were verified by the physician, the nurse and the anesthesiologist in the procedure room. Mental Status Examination: alert and oriented. Airway Examination: normal oropharyngeal airway and neck mobility. Respiratory Examination: clear to auscultation. CV Examination: normal. Prophylactic Antibiotics: The patient does not require prophylactic antibiotics. Prior Anticoagulants: The patient has taken no previous anticoagulant or antiplatelet agents. ASA Grade Assessment: II - A patient with mild systemic disease. After reviewing the risks and benefits, the patient was deemed in satisfactory condition to undergo the procedure. The anesthesia plan was to use monitored anesthesia care (MAC). Immediately prior to administration of medications, the patient was re-assessed for adequacy to receive sedatives. The heart rate, respiratory rate, oxygen saturations, blood pressure, adequacy of pulmonary ventilation, and response to care were monitored throughout the procedure. The physical status of the patient was re-assessed after the procedure. The Endoscope was introduced through the mouth, and advanced to the second part of duodenum. The upper GI endoscopy was accomplished without difficulty. The patient tolerated the procedure well. Findings: The Z-line was regular and was found 40 cm from the incisors. A small hiatal hernia was present. Scattered moderate inflammation characterized by erythema, friability and granularity was found in the gastric antrum. Biopsies were taken with a cold forceps for histology. Verification of patient identification for the specimen was done by the physician and nurse using the patient's name, date and medical record number. Estimated blood loss was minimal. Scattered mild inflammation characterized by erythema and friability was found in the duodenal bulb. Two biopsies were obtained with cold forceps for evaluation of celiac disease in the second portion of the duodenum. Impression: - Z-line regular, 40 cm from the incisors. - Small hiatal hernia. - Gastritis. Biopsied. - Duodenitis. - Biopsies performed in the second portion of the duodenum. Recommendation: - Patient has a contact number available for emergencies. The signs and symptoms of potential delayed complications were discussed with the patient. Return to normal activities tomorrow. Written discharge instructions were provided to the patient. - Resume previous diet. - Continue present medications. - Await pathology results. - Telephone GI clinic for pathology results in 2 weeks. - Return to primary care physician. Kilo Reyes MD Kilo Reyes MD 09/28/2019 11:43:40 AM Electronically signed by Kilo Reyes MD Number of Addenda: 0 Note Initiated On: 09/28/2019 11:03 AM Estimated Blood Loss: Estimated blood loss was minimal.
--- NOTE | 2019-09-28 11:46 | ROOR ---
Patient Name: Caron Franco Procedure Date: 09/28/2019 11:04 AM Date of : 1960 Age: 59 Room: [facility] Gender: Female Note Status: Finalized Procedure: Colonoscopy Indications: Chronic diarrhea Providers: Kilo Reyes MD Referring MD: LINDEN MORTON NP Requesting Provider: Medicines: Monitored Anesthesia Care Complications: No immediate complications. Procedure: Pre-Anesthesia Assessment: - Prior to the procedure, a History and Physical was performed, and patient medications and allergies were reviewed. The patient is competent. The risks and benefits of the procedure and the sedation options and risks were discussed with the patient. All questions were answered and informed consent was obtained. Patient identification and proposed procedure were verified by the physician, the nurse and the anesthesiologist in the procedure room. Prophylactic Antibiotics: The patient does not require prophylactic antibiotics. Prior Anticoagulants: The patient has taken no previous anticoagulant or antiplatelet agents. ASA Grade Assessment: II - A patient with mild systemic disease. After reviewing the risks and benefits, the patient was deemed in satisfactory condition to undergo the procedure. The anesthesia plan was to use monitored anesthesia care (MAC). Immediately prior to administration of medications, the patient was re-assessed for adequacy to receive sedatives. The heart rate, respiratory rate, oxygen saturations, blood pressure, adequacy of pulmonary ventilation, and response to care were monitored throughout the procedure. The physical status of the patient was re-assessed after the procedure. The Colonoscope was introduced through the anus with the intention of advancing to the cecum. The scope was advanced to the sigmoid colon before the procedure was aborted. Medications were given. The colonoscopy was performed without difficulty. The patient tolerated the procedure well. The quality of the bowel preparation was poor. The rectum was photographed. Scope insertion time was 1 minute. Scope withdrawal time was 2 minutes. The total duration of the procedure was 3 minutes. Findings: The perianal and digital rectal examinations were normal. A large amount of semi-solid solid stool was found from rectum to sigmoid colon, precluding visualization. Two biopsies were obtained with cold forceps for histology and evaluation of microscopic colitis in the rectum. Verification of patient identification for the specimen was done by the physician and nurse using the patient's name, date and medical record number. Estimated blood loss was minimal. Impression: - Preparation of the colon was poor. - Stool from rectum to sigmoid colon. - Biopsies performed in the rectum. Recommendation: - Patient has a contact number available for emergencies. The signs and symptoms of potential delayed complications were discussed with the patient. Return to normal activities tomorrow. Written discharge instructions were provided to the patient. - Resume previous diet. - Continue present medications. - Await pathology results. - Repeat colonoscopy in 1 year depending on clinical and functional status. - Telephone GI clinic for pathology results in 2 weeks. - Return to primary care physician. Kilo Reyes MD Kilo Reyes MD 09/28/2019 11:46:35 AM Electronically signed by Kilo Reyes MD Number of Addenda: 0 Note Initiated On: 09/28/2019 11:04 AM Estimated Blood Loss: Estimated blood loss was minimal.
[2019-09-28 12:00] VITALS: BP 170/74
== END 2019-09-28 12:09 | disposition home or self-care (01) ==
LOC: M OPP 09:48
PROVIDERS: ATTEND Internal Medicine Gastroenterology
DX: K52.9 Noninfective gastroenteritis and colitis, unspecified (principal); K44.9 Diaphragmatic hernia without obstruction or gangrene; K29.70 Gastritis, unspecified, without bleeding; K29.80 Duodenitis without bleeding; R10.13 Epigastric pain; R11.2 Nausea with vomiting, unspecified; K21.9 Gastro-esophageal reflux disease without esophagitis; Z80.0 Family history of malignant neoplasm of digestive organs; Z79.899 Other long term (current) drug therapy; Z88.8 Allergy status to other drugs, medicaments and biological substances; Z91.030 Bee allergy status

== ENCOUNTER → 2020-02-09 | Outpatient (REF) | payer MEDICAID ==
[~2020-02-09] MED LIST changes: -ASPI81TA85 PO; +ASPI81TA86 PO; -LIDOCAINE 2% INJ 100 MG/5 ML SDV (FOR ANES.) As Ordered ONE; +METH-1164 PO; -METH1TAB40 PO; -NS 1,000 ML IV ONE; -ROPI1TAB PO; +ROPI1TAB3 PO; -ROPI2TAB PO; +ROPI2TAB3 PO; -propofoL 500 MG/50 ML VIAL As Ordered ONE
== END ==
LOC: M SFHCLERA 13:23
PROVIDERS: ATTEND Physician Assistant
DX: R30.0 Dysuria (principal)

== ENCOUNTER → 2020-04-27 | Outpatient (CLI) | payer BC, MEDICAID ==
[~2020-04-27] MED LIST changes: -METH-1164 PO; +METH1TAB40 PO
[2020-04-27 16:58] LABS: HEMATOCRIT 42.8 % (36.0-47.0); HEMOGLOBIN 13.6 g/dl (12.0-15.5); MEAN CORPUSCULAR HEMOGLOBIN 28.5 pg (27.0-33.0); MEAN CORPUSCULAR HGB CONC 31.8 g/dl (32.0-36.5); MEAN CORPUSCULAR VOLUME 89.5 fl (80.0-96.0); PLATELET COUNT, AUTOMATED 171 10^3/uL (150-450); RED BLOOD COUNT 4.78 10^6/uL (4.00-5.40); WHITE BLOOD COUNT 6.1 10^3/uL (4.0-10.0)
[2020-04-27 17:11] LABS: ALBUMIN 3.7 GM/DL (3.2-5.2); ALT/SGPT 16 U/L (12-78); BILIRUBIN,TOTAL 0.4 MG/DL (0.2-1.0); BLOOD UREA NITROGEN 12 MG/DL (7-18); CALCIUM LEVEL 9.3 MG/DL (8.8-10.2); CARBON DIOXIDE LEVEL 29 MEQ/L (21-32); CHLORIDE LEVEL 109 MEQ/L (98-107); CHOLESTEROL LEVEL 119 MG/DL (<200); CHOLESTEROL RISK RATIO 3.718 (<5); CPK CREATINE PHOSPHOKINASE 55 U/L (26-192); GLOMERULAR FILTRATION RATE > 60.0 (>45); GLUCOSE, FASTING 111 MG/DL (70-100); HDL CHOLESTEROL 32 MG/DL (>40); LDL CHOLESTEROL 39 MG/DL (<100); NON-HDL-C 87 MG/DL; POTASSIUM SERUM 4.7 MEQ/L (3.5-5.1); SODIUM LEVEL 141 MEQ/L (136-145); TRIGLYCERIDES LEVEL 242 MG/DL (<150)
== END ==
LOC: M LRY 09:19
PROVIDERS: ATTEND Nurse Practitioner Family
DX: I10 Essential (primary) hypertension (principal); E78.5 Hyperlipidemia, unspecified; E11.9 Type 2 diabetes mellitus without complications

== ENCOUNTER → 2020-05-20 | Outpatient (CLI) | payer OTHER ==
[~2020-05-20] MED LIST changes: +GASTROGRAFIN SOLUTION 30ML (Q9963) As Ordered ONE; +ISOVUE-370 76% 100ML VIAL As Ordered ONE
--- NOTE | 2020-05-26 13:26 | REP ---
CT ABDOMEN AND PELVIS WITH INTRAVENOUS (IV) AND ORAL CONTRAST HISTORY: Diarrhea and epigastric pain. COMPARISON: No comparison abdominal imaging. CT CONTRAST DOSE: 100 mL of intravenous [id number]-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 The lung bases are clear on axial CT images except for some minimal linear fibrosis in the left base involving the lingula and in the right base in the middle lobe. There is mild diffuse fatty infiltration of the liver. There are two small hepatic hemangiomas, one in the left lobe measuring 2.5 cm and the other in the right lobe measuring 1.2 cm in diameter. Clips are noted in the gallbladder fossa. No focal splenic lesion is seen. Normal adrenal glands are noted. No abnormality is visible in the pancreas. No biliary ductal dilation is seen. Kidneys enhance symmetrically and are morphologically intact. The right kidney is somewhat smaller than the left. Vascular calcification is noted in the aorta. Aorta is normal in caliber. Small and large intestinal bowel loops are normal in caliber. The appendix is surgically absent. The uterus is surgically absent. Urinary bladder is unremarkable. No abdominal wall defect is seen. No mass or adenopathy is noted in the abdomen or pelvis. Bone window settings show no bony destructive lesion. IMPRESSION: Two small low-density liver lesions compatible with hemangiomas. There is a third hemangioma in the liver 1.0 cm in diameter posteriorly as well. Post cholecystectomy, hysterectomy, and appendectomy. Otherwise negative. MTDD
== END ==
LOC: M RAD 13:06
PROVIDERS: ATTEND Internal Medicine Gastroenterology
DX: R11.2 Nausea with vomiting, unspecified (principal); R19.7 Diarrhea, unspecified; R10.13 Epigastric pain
CPT/HCPCS: 74177; Q9963; Q9967

== ENCOUNTER → 2021-12-18 | Outpatient (CLI) | payer OTHER ==
[~2021-12-18] MED LIST changes: +ASPI81TA26 PO; -CALC1TAB8 PO; +CALC600T67 PO; +ERGO500029 PO; -GASTROGRAFIN SOLUTION 30ML (Q9963) As Ordered ONE; -ISOVUE-370 76% 100ML VIAL As Ordered ONE; +METF500T13 PO; +METH-1164 PO; -METH1TAB40 PO; +VALS1TAB67 PO
== END ==
LOC: M RAD 08:40
PROVIDERS: ATTEND Internal Medicine Gastroenterology
DX: R11.2 Nausea with vomiting, unspecified (principal); Z53.9 Procedure and treatment not carried out, unspecified reason

== ENCOUNTER → 2021-12-20 | Outpatient (CLI) | payer OTHER | LOC: M LABSMTC 10:46 | PROVIDERS: ATTEND Anesthesiology | DX: Z01.812 Encounter for preprocedural laboratory examination (principal); Z20.822 Contact with and (suspected) exposure to COVID-19 ==

== ENCOUNTER 2021-12-25 07:29 | Day surgery (SDC) | payer OTHER ==
[~2021-12-25] VITALS: Ht 162.6 cm; Wt 82.6 kg
[~2021-12-25 07:29] MED LIST changes: +NS 1,000 ML IV ONE
[2021-12-25] MEDS ORDERED: fentaNYL 100 MCG/2 ML INJECTION As Ordered ONE (08:36)
[2021-12-25] MEDS ORDERED: propofoL 200 MG/20 ML VIAL As Ordered ONE (09:35)
[2021-12-25 09:51] VITALS: BP 114/82
== END 2021-12-25 09:53 | disposition home or self-care (01) ==
LOC: M OPP 07:29
PROVIDERS: ATTEND Internal Medicine Gastroenterology
DX: Z12.11 Encounter for screening for malignant neoplasm of colon (principal); Z86.010 Personal history of colon polyps; K63.5 Polyp of colon; K63.89 Other specified diseases of intestine; K64.8 Other hemorrhoids; K44.9 Diaphragmatic hernia without obstruction or gangrene; K29.70 Gastritis, unspecified, without bleeding; R11.2 Nausea with vomiting, unspecified; K21.00 Gastro-esophageal reflux disease with esophagitis, without bleeding; Z80.0 Family history of malignant neoplasm of digestive organs; Z85.3 Personal history of malignant neoplasm of breast; Z85.42 Personal history of malignant neoplasm of other parts of uterus; E11.9 Type 2 diabetes mellitus without complications; G47.33 Obstructive sleep apnea (adult) (pediatric); Z99.89 Dependence on other enabling machines and devices; Z79.82 Long term (current) use of aspirin; Z79.84 Long term (current) use of oral hypoglycemic drugs; Z79.899 Other long term (current) drug therapy; Z88.8 Allergy status to other drugs, medicaments and biological substances; Z91.030 Bee allergy status
CPT/HCPCS: 43239; 45380; 45385; 88305; J3010

== ENCOUNTER → 2022-03-13 | Outpatient (CLI) | payer OTHER ==
[~2022-03-13] MED LIST changes: -NS 1,000 ML IV ONE
== END ==
LOC: M RAD 11:09
PROVIDERS: ATTEND Internal Medicine Gastroenterology
DX: K31.84 Gastroparesis (principal); R11.2 Nausea with vomiting, unspecified; R10.84 Generalized abdominal pain; R10.11 Right upper quadrant pain
CPT/HCPCS: 78264; A9541

== ENCOUNTER → 2023-01-07 | Outpatient (CLI) | payer OTHER ==
[~2023-01-07] MED LIST changes: +ISOVUE-300 61% 100ML VIAL As Ordered ONE; +LIDOCAINE 1% MDV 20ML VIAL As Ordered ONE; +TRIAMCINOLONE ACETONIDE SUSP 40MG/ML 1ML VIAL As Ordered ONE
== END ==
LOC: M RAD 11:00
PROVIDERS: ATTEND Physician Assistant Surgical
DX: M16.12 Unilateral primary osteoarthritis, left hip (principal)
CPT/HCPCS: 20610; 77002; J3301; Q9967

== ENCOUNTER → 2023-06-27 | Outpatient (CLI) | payer OTHER ==
[~2023-06-27] MED LIST changes: -ISOVUE-300 61% 100ML VIAL As Ordered ONE; -LIDOCAINE 1% MDV 20ML VIAL As Ordered ONE; +PROHANCE 279.3MG/ML 15ML VIAL ONE; -ROPI1TAB3 PO; +ROPI1TAB73 PO; -ROPI2TAB3 PO; +ROPI2TAB46 PO; -TRIAMCINOLONE ACETONIDE SUSP 40MG/ML 1ML VIAL As Ordered ONE
== END ==
LOC: M PLAIMG 14:05
PROVIDERS: ATTEND Nurse Practitioner
DX: R16.0 Hepatomegaly, not elsewhere classified (principal); R93.3 Abnormal findings on diagnostic imaging of other parts of digestive tract
CPT/HCPCS: 74183; A9576

== ENCOUNTER → 2025-04-02 | Outpatient (CLI) | payer MEDICARE ==
[~2025-04-02] MED LIST changes: +E-Z-GAS II EFFERVESCENT PACKET (SODIUM BICARB./CITRIC ACID/SIMETHICONE) As Ordered ONE; +E-Z-HD 98% w/w 340 GM SUSP BTL As Ordered ONE; +E-Z-PAQUE 96% w/w SUSP 176 GM BTL As Ordered ONE; -PROHANCE 279.3MG/ML 15ML VIAL ONE; -TRIA25CR TOP; +TRIA80CR15 TOP
== END ==
LOC: M RAD 09:30
PROVIDERS: ATTEND Student in an Organized Health Care Education/Training Program
DX: K44.9 Diaphragmatic hernia without obstruction or gangrene (principal)